=== PATIENT | male | born 1940 | race Caucasian/White ===

== ENCOUNTER 2021-12-31 00:48 | Inpatient (IN) | payer OTHER, BC ==
[~2021-12-31] VITALS: Ht 182.9 cm; Wt 82.5 kg
[2021-12-31 04:56] LABS: Urine Bacteria FEW /hpf (None Seen); Urine Blood 1+ /uL (Negative); Urine Specific Gravity 1.015 (1.001-1.035); Urine WBC 3554 /hpf (0 - 3); Urine WBC Clumps PRESENT /hpf (None Seen)
[2021-12-31] MEDS ORDERED: SODIUM CHLORIDE 0.9% 1,000 ML IV ONE (07:30)
[2021-12-31] MEDS ORDERED: ASPirin 81 mg TAB PO ONE (07:30)
[2021-12-31] MEDS ORDERED: SODIUM CHLORIDE 0.9% 1,000 ML IVB ONE (07:30)
[2021-12-31 09:02] LABS: Basophils # (auto) 0.1 10 ^3/uL (0-0.2); Eosinophils # (auto) 0.7 10 ^3/uL (0-0.8); Neutrophils # (auto) 8.4 10 ^3/uL (1.6-8.6); Red Blood Cells 4.08 10^6/uL (4.5-5.90)
[2021-12-31 09:04] LABS: Basophils % (auto) 1.2 % (0.0-2.0); Eosinophils % (auto) 6.3 % (0.0-7.0); Hematocrit 32.7 % (41.0-53.0); Hemoglobin 10.8 g/dL (13.5-17.5); Lymphocytes # (auto) 0.8 10 ^3/uL (0.4-5.4); Lymphocytes % (auto) 6.8 % (10.0-50.0); Mean Corpuscular Hemoglobin 26.4 pg (28.0-32.0); Mean Corpuscular Volume 80.2 fL (80.0-100.0); Monocytes # (auto) 1.2 10 ^3/uL (0-1.3); Monocytes % (auto) 10.8 % (0.0-12.0); Neutrophils % (auto) 74.9 % (37.0-80.0); Red Cell Distribution Width 17.9 % (11.8-14.3); White Blood Cell 11.2 10^3/uL (4.4-10.8)
[2021-12-31 09:06] LABS: Albumin 2.7 g/dL (3.4-5.0); Calcium 11.3 mg/dL (8.5-10.1); Potassium 4.9 mmol/L (3.5-5.1)
[2021-12-31 09:10] LABS: BUN/Creatinine Ratio 14.1; Bilirubin, Total 0.4 mg/dL (0.2-1.0); Total Protein 6.1 g/dL (6.4-8.2)
[2021-12-31] MEDS ORDERED: FUROSEMIDE 20 MG/2 ML VIAL IV ONE (13:15)
[2021-12-31] MEDS ORDERED: cefTRIAXone 1GM/50ML D5W 50 ML IV ONE (13:15)
[2021-12-31] MEDS ORDERED: AZITHROMYCIN 500MG/ 250ML 250 ML IV ONE (16:00)
[2021-12-31] MEDS ORDERED: NITROGLYCERIN 0.4 MG SL TAB SL PRN (16:30)
[2021-12-31] MEDS ORDERED: MORPHINE SULFATE INJECTION 2 MG/ML SYRG IV PRN ×2 (16:30→17:45)
[2021-12-31] MEDS ORDERED: METOPROLOL SUCCINATE XL 50 MG TAB PO ONE (17:30)
[2021-12-31] MEDS ORDERED: DOCUSATE SOD 100 MG CAP PO PRN (17:45)
[2021-12-31] MEDS ORDERED: LORazepam 0.5 MG TAB PO PRN (17:45)
[2021-12-31] MEDS ORDERED: hydrALAZINE HCL 20 MG/ML VL IV PRN (17:45)
[2021-12-31] MEDS ORDERED: dilTIAZem 125mg/125ml BAG KIT 125 ML IV SCH (17:45)
[2021-12-31] MEDS ORDERED: ONDANSETRON HCL 4 MG/2 ML VIAL IV PRN (17:45)
[2021-12-31] MEDS ORDERED: HYDROcodone-ACET 5/325MG TAB PO PRN (17:45)
[2021-12-31] MEDS: TAMSULOSIN HYDROCHLORIDE 0.4 MG CAP PO SCH (18:39)
[2021-12-31 18:45] LABS: Magnesium 1.8 mg/dL (1.6-2.6); Phosphorus 4.2 mg/dL (2.5-4.90)
[2021-12-31 18:54] LABS: INR 3.26 (0.9-1.15); Partial Thromboplastin Time 36.3 sec (23.6-33.0)
[2021-12-31 20:54] VITALS: BP 141/74
[2021-12-31 22:06] VITALS: BP 151/67
[2021-12-31] MEDS: ATORVASTATIN 20 MG TAB PO SCH (22:48)
[2021-12-31 23:50] VITALS: BP 126/53
[2022-01-01] VITALS (7 sets, daily range): BP systolic 128–168; BP diastolic 54–71
[2022-01-01] MEDS ORDERED: LABETALOL HCL 5 MG/ML 4ML SYRINGE IV PRN ×2 (01:00→09:30)
[2022-01-01] MEDS ORDERED: DEXTROSE (50%) 50ML SYRG IV PRN (01:00)
[2022-01-01] MEDS ORDERED: DexAMETHasone SOD PHOS 4 MG/1ML SDV INJ IV ONE (01:00)
[2022-01-01] MEDS ORDERED: LACTATED RINGER'S 1,000 ML IV SCH (01:00)
[2022-01-01] MEDS: IPRATROPIUM BROM 0.5 MG/2.5ML INH SOL NEB SCH ×2 (02:00→06:29)
[2022-01-01] MEDS ORDERED: LOSA25TA38 PO (05:01)
[2022-01-01] MEDS ORDERED: FAMO-12 PO (05:01)
[2022-01-01] MEDS ORDERED: FINA5TAB4 PO (05:01)
[2022-01-01] MEDS ORDERED: WARF6TAB21 PO (05:01)
[2022-01-01] MEDS ORDERED: TAMS0.4C36 PO (05:01)
[2022-01-01] MEDS ORDERED: METF-370 PO (05:01)
[2022-01-01] MEDS ORDERED: SIMV-8 PO (05:01)
[2022-01-01] MEDS ORDERED: CLINDAMYCIN 600MG IV 50 ML IV SCH (06:00)
[2022-01-01] MEDS: ACCU-CHEK COMFORT CURVE STRIP VI SCH ×4 (06:51→22:26)
[2022-01-01] MEDS: InsuLIN REG 1unit/0.01ml Soln (100units/ml) SC SCH ×4 (06:52→22:27)
[2022-01-01] MEDS: cefTRIAXone 1GM/50ML D5W 50 ML IV SCH (09:34)
[2022-01-01] MEDS: FINASTERIDE 5 MG TAB PO SCH (09:35)
[2022-01-01] MEDS ORDERED: dilTIAZem 120MG ER CAP PO SCH (10:00)
[2022-01-01] MEDS: AMIODARONE HCL 200 MG TAB PO SCH ×2 (10:13→22:25)
[2022-01-01] MEDS: CARVEDILOL 3.125 MG TAB PO SCH ×2 (10:13→22:26)
[2022-01-01] MEDS: amLODIPine BESYLATE 5 MG TAB PO SCH (10:14)
[2022-01-01 11:12] LABS: Hematocrit 28.8 % (41.0-53.0); Hemoglobin 9.3 g/dL (13.5-17.5); Red Blood Cells 3.54 10^6/uL (4.5-5.90)
[2022-01-01 11:14] LABS: Mean Corpuscular Hemoglobin 26.3 pg (28.0-32.0); Mean Corpuscular Hgb Conc. 32.3 g/dL (32.0-36.0); Mean Corpuscular Volume 81.4 fL (80.0-100.0); Red Cell Distribution Width 17.8 % (11.8-14.3); White Blood Cell 11.5 10^3/uL (4.4-10.8)
[2022-01-01 11:21] LABS: Basophils % (manual) 0 (0.0-2.0); Blast Cells 0; Myelocytes % 0; Promyelocytes % 0; Reactive Lymphocytes 0
[2022-01-01 11:30] LABS: INR 3.96 (0.9-1.15)
[2022-01-01 11:34] LABS: Albumin 2.2 g/dL (3.4-5.0); Calcium 10.5 mg/dL (8.5-10.1); Magnesium 1.6 mg/dL (1.6-2.6); Potassium 4.9 mmol/L (3.5-5.1)
[2022-01-01 11:48] LABS: BUN/Creatinine Ratio 15.1; Bilirubin, Total 0.3 mg/dL (0.2-1.0); CRP High Sensitivity 3.99 mg/dL (< 0.3); Phosphorus 3.7 mg/dL (2.5-4.90); Total Protein 5.5 g/dL (6.4-8.2)
[2022-01-01 11:49] LABS: Thyroid Stimulating Hormone 1.11 uIU/mL (0.358-3.74)
[2022-01-01] MEDS ORDERED: NYSTATIN TOPICAL CREAM 15GM TOP ONE (12:00)
[2022-01-01 12:24] LABS: Band Neutrophils % (manual) 45; Eosinophils % (manual) 4 (0-7); Lymphocytes % (manual) 1 (10.0-50.0); Metamyelocytes % 2; Monocytes % (manual) 3 (0-12)
[2022-01-01] MEDS: TAMSULOSIN HYDROCHLORIDE 0.4 MG CAP PO SCH (17:02)
[2022-01-01] MEDS: NYSTATIN TOPICAL CREAM 15GM TOP SCH (22:26)
[2022-01-01] MEDS: ATORVASTATIN 20 MG TAB PO SCH (22:26)
[2022-01-02 05:27] VITALS: BP 155/68
[2022-01-02] MEDS: ACCU-CHEK COMFORT CURVE STRIP VI SCH ×4 (06:12→21:55)
[2022-01-02] MEDS: InsuLIN REG 1unit/0.01ml Soln (100units/ml) SC SCH ×4 (06:12→22:01)
[2022-01-02 06:16] LABS: Basophils # (auto) 0.1 10 ^3/uL (0-0.2); Eosinophils # (auto) 1.2 10 ^3/uL (0-0.8); Hemoglobin 9.6 g/dL (13.5-17.5); Red Cell Distribution Width 17.4 % (11.8-14.3)
[2022-01-02 06:18] LABS: Basophils % (auto) 0.7 % (0.0-2.0); Eosinophils % (auto) 9.1 % (0.0-7.0); Hematocrit 28.6 % (41.0-53.0); Lymphocytes # (auto) 0.5 10 ^3/uL (0.4-5.4); Lymphocytes % (auto) 3.8 % (10.0-50.0); Mean Corpuscular Hemoglobin 26.6 pg (28.0-32.0); Mean Corpuscular Hgb Conc. 33.4 g/dL (32.0-36.0); Mean Corpuscular Volume 79.4 fL (80.0-100.0); Monocytes # (auto) 1.2 10 ^3/uL (0-1.3); Monocytes % (auto) 8.6 % (0.0-12.0); Neutrophils # (auto) 10.5 10 ^3/uL (1.6-8.6); Neutrophils % (auto) 77.8 % (37.0-80.0); Red Blood Cells 3.61 10^6/uL (4.5-5.90); White Blood Cell 13.5 10^3/uL (4.4-10.8)
[2022-01-02 06:22] LABS: INR 3.78 (0.9-1.15); Partial Thromboplastin Time 36.5 sec (23.6-33.0)
[2022-01-02 06:33] LABS: BUN/Creatinine Ratio 17.1; Calcium 10.8 mg/dL (8.5-10.1); Potassium 4.3 mmol/L (3.5-5.1)
[2022-01-02] MEDS: AMIODARONE HCL 200 MG TAB PO SCH ×2 (08:59→21:54)
[2022-01-02] MEDS: FINASTERIDE 5 MG TAB PO SCH (08:59)
[2022-01-02 09:00] VITALS: BP 129/53
[2022-01-02] MEDS: CARVEDILOL 3.125 MG TAB PO SCH ×2 (09:01→21:55)
[2022-01-02] MEDS: cefTRIAXone 1GM/50ML D5W 50 ML IV SCH (09:02)
[2022-01-02] MEDS: amLODIPine BESYLATE 5 MG TAB PO SCH (09:02)
[2022-01-02] MEDS ORDERED: ERTAPENEM SOD INJ 1 GM in SODIUM CHL 0.9% 50 ML IV ONE (10:15)
[2022-01-02] MEDS ORDERED: FUROSEMIDE 20 MG/2 ML VIAL IV ONE (10:15)
[2022-01-02 10:43] LABS: Urine Bacteria MANY /hpf (None Seen); Urine Blood TRACE /uL (Negative); Urine Budding Yeast FEW /hpf (None Seen); Urine Mucus FEW (None Seen); Urine WBC 743 /hpf (0 - 3); Urine WBC Clumps PRESENT /hpf (None Seen)
[2022-01-02 10:47] LABS: Amphetamine Screen, Urine NEGATIVE (NEGATIVE); Barbiturate Scree,Urine NEGATIVE (NEGATIVE); Benzodiazephine Screen, Urine NEGATIVE (NEGATIVE); Cannabinoid Screen, Urine NEGATIVE (NEGATIVE); Protein, Urine 37.8 mg/dL (0.0-11.9)
[2022-01-02] MEDS: NYSTATIN TOPICAL CREAM 15GM TOP SCH ×2 (10:49→21:55)
[2022-01-02 10:50] LABS: Cocaine Screen, Urine NEGATIVE (NEGATIVE); Opiate Scree,Urine NEGATIVE (NEGATIVE); Phencyclidine Screen, Urine NEGATIVE (NEGATIVE)
[2022-01-02 13:00] VITALS: BP 139/58
[2022-01-02 17:18] VITALS: BP 150/58
[2022-01-02] MEDS: TAMSULOSIN HYDROCHLORIDE 0.4 MG CAP PO SCH (18:22)
[2022-01-02] MEDS: ATORVASTATIN 20 MG TAB PO SCH (21:55)
[2022-01-02 23:03] VITALS: BP 128/55
[2022-01-03 05:29] VITALS: BP 146/62
[2022-01-03 06:06] LABS: Basophils # (auto) 0.1 10 ^3/uL (0-0.2); Lymphocytes # (auto) 0.6 10 ^3/uL (0.4-5.4); Monocytes # (auto) 0.9 10 ^3/uL (0-1.3); Monocytes % (auto) 8.3 % (0.0-12.0)
[2022-01-03 06:09] LABS: Eosinophils # (auto) 1.1 10 ^3/uL (0-0.8); Eosinophils % (auto) 10.8 % (0.0-7.0); Hematocrit 29.5 % (41.0-53.0); Hemoglobin 9.9 g/dL (13.5-17.5); Lymphocytes % (auto) 6.2 % (10.0-50.0); Mean Corpuscular Hemoglobin 27.2 pg (28.0-32.0); Mean Corpuscular Hgb Conc. 33.7 g/dL (32.0-36.0); Mean Corpuscular Volume 80.7 fL (80.0-100.0); Neutrophils # (auto) 7.6 10 ^3/uL (1.6-8.6); Neutrophils % (auto) 73.7 % (37.0-80.0); Red Blood Cells 3.65 10^6/uL (4.5-5.90); Red Cell Distribution Width 17.4 % (11.8-14.3); White Blood Cell 10.3 10^3/uL (4.4-10.8)
[2022-01-03 06:19] LABS: INR 2.12 (0.9-1.15); Partial Thromboplastin Time 30.6 sec (23.6-33.0)
[2022-01-03 06:21] LABS: BUN/Creatinine Ratio 18.5; Calcium 11.2 mg/dL (8.5-10.1); Potassium 4.8 mmol/L (3.5-5.1)
[2022-01-03] MEDS: ACCU-CHEK COMFORT CURVE STRIP VI SCH ×4 (06:43→22:10)
[2022-01-03] MEDS: InsuLIN REG 1unit/0.01ml Soln (100units/ml) SC SCH ×4 (06:44→22:24)
[2022-01-03 09:00] VITALS: BP 132/54
[2022-01-03] MEDS: amLODIPine BESYLATE 5 MG TAB PO SCH (10:42)
[2022-01-03] MEDS: NYSTATIN TOPICAL CREAM 15GM TOP SCH ×2 (10:42→22:03)
[2022-01-03] MEDS: FINASTERIDE 5 MG TAB PO SCH (10:42)
[2022-01-03] MEDS: CARVEDILOL 3.125 MG TAB PO SCH ×2 (10:43→22:00)
[2022-01-03] MEDS: AMIODARONE HCL 200 MG TAB PO SCH ×2 (10:43→21:58)
[2022-01-03] MEDS: ERTAPENEM SOD INJ 1 GM in SODIUM CHL 0.9% 50 ML IV SCH (11:18)
[2022-01-03 13:00] VITALS: BP 147/61
[2022-01-03 17:00] VITALS: BP 160/62
[2022-01-03] MEDS ORDERED: WARFARIN SODIUM 1 MG TAB PO ONE (17:00)
[2022-01-03] MEDS: TAMSULOSIN HYDROCHLORIDE 0.4 MG CAP PO SCH (18:16)
[2022-01-03] MEDS: ATORVASTATIN 20 MG TAB PO SCH (22:00)
[2022-01-04 05:00] VITALS: BP 127/62
[2022-01-04 05:13] LABS: Basophils # (auto) 0.1 10 ^3/uL (0-0.2); Hemoglobin 9.7 g/dL (13.5-17.5); Lymphocytes # (auto) 0.6 10 ^3/uL (0.4-5.4); Mean Corpuscular Hemoglobin 26.9 pg (28.0-32.0); White Blood Cell 12.4 10^3/uL (4.4-10.8)
[2022-01-04 05:15] LABS: Basophils % (auto) 1.1 % (0.0-2.0); Eosinophils % (auto) 8.3 % (0.0-7.0); Hematocrit 28.9 % (41.0-53.0); Lymphocytes % (auto) 4.6 % (10.0-50.0); Mean Corpuscular Hgb Conc. 33.4 g/dL (32.0-36.0); Mean Corpuscular Volume 80.6 fL (80.0-100.0); Monocytes % (auto) 7.7 % (0.0-12.0); Neutrophils # (auto) 9.7 10 ^3/uL (1.6-8.6); Neutrophils % (auto) 78.3 % (37.0-80.0); Red Blood Cells 3.59 10^6/uL (4.5-5.90); Red Cell Distribution Width 16.8 % (11.8-14.3)
[2022-01-04 05:25] LABS: INR 1.66 (0.9-1.15); Partial Thromboplastin Time 25.3 sec (23.6-33.0)
[2022-01-04 05:37] LABS: Potassium 5.2 mmol/L (3.5-5.1)
[2022-01-04 05:42] LABS: BUN/Creatinine Ratio 18.6; Calcium 11.2 mg/dL (8.5-10.1)
[2022-01-04] MEDS: ACCU-CHEK COMFORT CURVE STRIP VI SCH ×4 (06:11→22:27)
[2022-01-04] MEDS: InsuLIN REG 1unit/0.01ml Soln (100units/ml) SC SCH ×4 (06:11→22:00)
[2022-01-04 08:00] VITALS: BP 163/69
[2022-01-04 08:47] VITALS: BP 163/69
[2022-01-04] MEDS ORDERED: HEPARIN SODIUM (PORCINE) 5000 UNITS/ML 1ML VIAL IV ONE (09:30)
[2022-01-04] MEDS: ERTAPENEM SOD INJ 1 GM in SODIUM CHL 0.9% 50 ML IV SCH (09:37)
[2022-01-04] MEDS: AMIODARONE HCL 200 MG TAB PO SCH ×2 (09:40→22:26)
[2022-01-04] MEDS: CARVEDILOL 3.125 MG TAB PO SCH ×2 (09:40→22:26)
[2022-01-04] MEDS: FINASTERIDE 5 MG TAB PO SCH (09:41)
[2022-01-04] MEDS: amLODIPine BESYLATE 5 MG TAB PO SCH (09:41)
[2022-01-04] MEDS: NYSTATIN TOPICAL CREAM 15GM TOP SCH ×2 (09:41→22:27)
[2022-01-04 10:01] LABS: Hemoglobin 10.2 g/dL (13.5-17.5); Mean Corpuscular Hgb Conc. 33.1 g/dL (32.0-36.0); Red Cell Distribution Width 16.9 % (11.8-14.3)
[2022-01-04 10:02] LABS: Mean Corpuscular Hemoglobin 26.8 pg (28.0-32.0); Red Blood Cells 3.82 10^6/uL (4.5-5.90); White Blood Cell 12.8 10^3/uL (4.4-10.8)
[2022-01-04 10:11] LABS: Basophils % (manual) 0 (0.0-2.0); Blast Cells 0; Myelocytes % 0; Promyelocytes % 0; Reactive Lymphocytes 0
[2022-01-04 10:12] LABS: INR 1.67 (0.9-1.15); Partial Thromboplastin Time 27.7 sec (23.6-33.0)
[2022-01-04 10:40] LABS: Band Neutrophils % (manual) 18; Eosinophils % (manual) 6 (0-7); Lymphocytes % (manual) 6 (10.0-50.0); Metamyelocytes % 3; Monocytes % (manual) 7 (0-12)
[2022-01-04] MEDS: HEPARIN DRIP/D5W 100UNITS/ML 250 ML IV SCH (11:30)
[2022-01-04] MEDS: SODIUM ZIRCONIUM CYCL 10 GM PAK PO SCH ×2 (12:17→22:27)
[2022-01-04 12:40] VITALS: BP 127/76
[2022-01-04 17:00] VITALS: BP 137/57
[2022-01-04] MEDS: TAMSULOSIN HYDROCHLORIDE 0.4 MG CAP PO SCH (18:07)
[2022-01-04 18:17] LABS: INR 2.05 (0.9-1.15); Partial Thromboplastin Time 41.3 sec (23.6-33.0)
[2022-01-04 22:00] VITALS: BP 145/81
[2022-01-04] MEDS: ATORVASTATIN 20 MG TAB PO SCH (22:26)
[2022-01-05 02:21] LABS: INR 1.86 (0.9-1.15)
[2022-01-05 02:33] LABS: Partial Thromboplastin Time 72.9 sec (23.6-33.0)
[2022-01-05] MEDS: HEPARIN DRIP/D5W 100UNITS/ML 250 ML IV SCH ×2 (03:06→22:25)
[2022-01-05 05:00] VITALS: BP 118/43
[2022-01-05 05:19] LABS: Basophils # (auto) 0.1 10 ^3/uL (0-0.2); Eosinophils % (auto) 8.4 % (0.0-7.0); Hemoglobin 9.7 g/dL (13.5-17.5); Lymphocytes # (auto) 0.8 10 ^3/uL (0.4-5.4); Lymphocytes % (auto) 6.2 % (10.0-50.0); Mean Corpuscular Hgb Conc. 33.5 g/dL (32.0-36.0); Mean Corpuscular Volume 80.4 fL (80.0-100.0); Monocytes # (auto) 0.8 10 ^3/uL (0-1.3); Monocytes % (auto) 6.6 % (0.0-12.0); Neutrophils # (auto) 9.7 10 ^3/uL (1.6-8.6); Neutrophils % (auto) 77.8 % (37.0-80.0); Nucleated Red Blood Cells % 0.1 %; Red Cell Distribution Width 17.1 % (11.8-14.3); White Blood Cell 12.4 10^3/uL (4.4-10.8)
[2022-01-05 05:37] LABS: BUN/Creatinine Ratio 17.4; Calcium 10.6 mg/dL (8.5-10.1); Potassium 4.2 mmol/L (3.5-5.1)
[2022-01-05] MEDS: SODIUM ZIRCONIUM CYCL 10 GM PAK PO SCH (06:00)
[2022-01-05] MEDS: ACCU-CHEK COMFORT CURVE STRIP VI SCH ×4 (06:55→22:16)
[2022-01-05] MEDS: InsuLIN REG 1unit/0.01ml Soln (100units/ml) SC SCH ×4 (06:55→22:00)
[2022-01-05 08:00] VITALS: BP 148/54
[2022-01-05 08:56] VITALS: BP 148/54
[2022-01-05] MEDS: NYSTATIN TOPICAL CREAM 15GM TOP SCH ×2 (10:00→22:17)
[2022-01-05 10:51] LABS: INR 1.71 (0.9-1.15)
[2022-01-05 11:01] LABS: Partial Thromboplastin Time 98.5 sec (23.6-33.0)
[2022-01-05] MEDS ORDERED: LIDOCAINE 2%HCL (LOCAL ANESTH.) INJ 10ml MDV ONE (11:21)
[2022-01-05] MEDS ORDERED: diphenhdrAMINE HCL 50 MG/1 ML VL ONE (11:22)
[2022-01-05] MEDS ORDERED: ceFAZolin 1GM/50ML 100 ML IV ONE (12:17)
[2022-01-05] MEDS ORDERED: BUPIVACAINE 0.25% INJ 50ML VIAL ONE (12:22)
[2022-01-05] MEDS ORDERED: LIDOCAINE W/ EPINEPHRINE 1% 20ML VIAL ONE (12:22)
[2022-01-05] MEDS ORDERED: MIDAZOLAM HCL 2MG/2ML 2ml VIAL (1mg/ml) ONE (12:46)
[2022-01-05] MEDS ORDERED: fentaNYL CITRATE 100 MCG/2 ML VL ONE (12:46)
[2022-01-05] MEDS ORDERED: POVIDONE IODINE 10 % TOPICAL OINT 30GM TOP ONE (13:13)
[2022-01-05] MEDS ORDERED: LIDOCAINE 2% (LOCAL ANESTH.) PF 5ml SDV ONE (13:23)
[2022-01-05] MEDS ORDERED: PROPOFOL 10 MG/ML 20 ML IV ONE (13:23)
[2022-01-05] MEDS ORDERED: ONDANSETRON HCL 4 MG/2 ML VIAL IV PRN (13:45)
[2022-01-05] MEDS: ERTAPENEM SOD INJ 1 GM in SODIUM CHL 0.9% 50 ML IV SCH (14:36)
[2022-01-05] MEDS: amLODIPine BESYLATE 5 MG TAB PO SCH (14:37)
[2022-01-05] MEDS: AMIODARONE HCL 200 MG TAB PO SCH ×2 (14:38→22:11)
[2022-01-05] MEDS: CARVEDILOL 3.125 MG TAB PO SCH ×2 (14:38→22:16)
[2022-01-05] MEDS: FINASTERIDE 5 MG TAB PO SCH (14:38)
[2022-01-05 16:42] LABS: INR 1.72 (0.9-1.15); Partial Thromboplastin Time 49.5 sec (23.6-33.0)
[2022-01-05 16:58] VITALS: BP 139/50
[2022-01-05 16:59] VITALS: BP 139/65
[2022-01-05] MEDS: TAMSULOSIN HYDROCHLORIDE 0.4 MG CAP PO SCH (17:49)
[2022-01-05 22:03] VITALS: BP 125/49
[2022-01-05] MEDS: ATORVASTATIN 20 MG TAB PO SCH (22:11)
[2022-01-05 23:53] LABS: INR 1.75 (0.9-1.15)
[2022-01-05 23:59] LABS: Partial Thromboplastin Time 73.4 sec (23.6-33.0)
[2022-01-06 05:04] VITALS: BP 121/46
[2022-01-06 05:27] LABS: Basophils # (auto) 0.1 10 ^3/uL (0-0.2); Basophils % (auto) 1.1 % (0.0-2.0); Eosinophils # (auto) 0.7 10 ^3/uL (0-0.8); Eosinophils % (auto) 6.1 % (0.0-7.0); Hematocrit 27.5 % (41.0-53.0); Hemoglobin 9.3 g/dL (13.5-17.5); Lymphocytes % (auto) 8.8 % (10.0-50.0); Mean Corpuscular Hemoglobin 27.2 pg (28.0-32.0); Mean Corpuscular Hgb Conc. 33.7 g/dL (32.0-36.0); Mean Corpuscular Volume 80.8 fL (80.0-100.0); Monocytes # (auto) 0.7 10 ^3/uL (0-1.3); Monocytes % (auto) 6.2 % (0.0-12.0); Neutrophils # (auto) 8.8 10 ^3/uL (1.6-8.6); Neutrophils % (auto) 77.8 % (37.0-80.0); White Blood Cell 11.4 10^3/uL (4.4-10.8)
[2022-01-06 05:38] LABS: INR 1.63 (0.9-1.15); Partial Thromboplastin Time 34.7 sec (23.6-33.0)
[2022-01-06 05:42] LABS: Calcium 10.7 mg/dL (8.5-10.1); Potassium 4.2 mmol/L (3.5-5.1)
[2022-01-06 05:44] LABS: BUN/Creatinine Ratio 16.8
[2022-01-06] MEDS: InsuLIN REG 1unit/0.01ml Soln (100units/ml) SC SCH ×3 (07:00→16:57)
[2022-01-06] MEDS: ACCU-CHEK COMFORT CURVE STRIP VI SCH ×3 (07:10→16:56)
[2022-01-06] MEDS ORDERED: HEPARIN SODIUM (PORCINE) 5000 UNITS/ML 1ML VIAL IV ONE ×2 (07:30→18:30)
[2022-01-06 09:19] VITALS: BP 139/43
[2022-01-06] MEDS: AMIODARONE HCL 200 MG TAB PO SCH ×2 (09:55→21:19)
[2022-01-06] MEDS: amLODIPine BESYLATE 5 MG TAB PO SCH (09:56)
[2022-01-06] MEDS: CARVEDILOL 3.125 MG TAB PO SCH ×2 (09:56→21:19)
[2022-01-06] MEDS: FINASTERIDE 5 MG TAB PO SCH (09:56)
[2022-01-06] MEDS: NYSTATIN TOPICAL CREAM 15GM TOP SCH ×2 (09:57→21:20)
[2022-01-06 11:59] LABS: INR 1.67 (0.9-1.15)
[2022-01-06 12:28] LABS: Partial Thromboplastin Time > 139.0 sec (23.6-33.0)
[2022-01-06] MEDS: ERTAPENEM SOD INJ 1 GM in SODIUM CHL 0.9% 50 ML IV SCH (12:32)
[2022-01-06 13:09] VITALS: BP 109/97
[2022-01-06] MEDS: HEPARIN DRIP/D5W 100UNITS/ML 250 ML IV SCH ×3 (13:15→23:35)
[2022-01-06 16:26] VITALS: BP 123/52
[2022-01-06 17:50] LABS: INR 1.41 (0.9-1.15); Partial Thromboplastin Time 27.9 sec (23.6-33.0)
[2022-01-06] MEDS ORDERED: levoFLOXacin 500MG 100 ML IV ONE (18:15)
[2022-01-06] MEDS ORDERED: LACTULOSE 20Gm/30ML SOLN PO ONE (18:30)
[2022-01-06] MEDS: TAMSULOSIN HYDROCHLORIDE 0.4 MG CAP PO SCH (18:39)
[2022-01-06] MEDS ORDERED: WARFARIN SODIUM 1 MG TAB PO ONE (19:45)
[2022-01-06] MEDS: ATORVASTATIN 20 MG TAB PO SCH (21:19)
[2022-01-06 22:05] VITALS: BP 144/45
[2022-01-06] MEDS: LACTULOSE 20Gm/30ML SOLN PO SCH (23:31)
[2022-01-07 01:18] LABS: INR 1.55 (0.9-1.15)
[2022-01-07 01:20] LABS: Partial Thromboplastin Time 116.3 sec (23.6-33.0)
[2022-01-07] MEDS: HEPARIN DRIP/D5W 100UNITS/ML 250 ML IV SCH ×3 (02:32→19:26)
[2022-01-07 05:05] VITALS: BP 131/52
[2022-01-07] MEDS: LACTULOSE 20Gm/30ML SOLN PO SCH ×3 (05:31→17:51)
[2022-01-07 07:28] LABS: INR 1.51 (0.9-1.15)
[2022-01-07 09:26] VITALS: BP 134/52
[2022-01-07] MEDS: amLODIPine BESYLATE 5 MG TAB PO SCH (09:51)
[2022-01-07] MEDS: FINASTERIDE 5 MG TAB PO SCH (09:51)
[2022-01-07] MEDS: AMIODARONE HCL 200 MG TAB PO SCH ×2 (09:51→21:39)
[2022-01-07] MEDS: NYSTATIN TOPICAL CREAM 15GM TOP SCH ×2 (09:52→21:41)
[2022-01-07] MEDS: CARVEDILOL 3.125 MG TAB PO SCH ×2 (09:52→21:39)
[2022-01-07] MEDS ORDERED: levoFLOXacin 500MG 100 ML IV SCH (10:00)
[2022-01-07 12:52] VITALS: BP 131/52
[2022-01-07 14:38] LABS: INR 1.49 (0.9-1.15); Partial Thromboplastin Time 59.9 sec (23.6-33.0)
[2022-01-07 16:43] VITALS: BP 130/54
[2022-01-07] MEDS: levoFLOXacin 250MG 50 ML IV SCH (17:51)
[2022-01-07] MEDS: TAMSULOSIN HYDROCHLORIDE 0.4 MG CAP PO SCH (17:51)
[2022-01-07] MEDS ORDERED: WARFARIN SODIUM 1 MG TAB PO ONE (18:00)
[2022-01-07 21:23] LABS: Basophils # (auto) 0.1 10 ^3/uL (0-0.2); Basophils % (auto) 0.7 % (0.0-2.0); Lymphocytes # (auto) 0.7 10 ^3/uL (0.4-5.4)
[2022-01-07 21:24] LABS: Hemoglobin 9.3 g/dL (13.5-17.5)
[2022-01-07 21:27] LABS: Eosinophils # (auto) 1.2 10 ^3/uL (0-0.8); Eosinophils % (auto) 8.6 % (0.0-7.0); Hematocrit 27.4 % (41.0-53.0); Lymphocytes % (auto) 5.1 % (10.0-50.0); Mean Corpuscular Hemoglobin 27.4 pg (28.0-32.0); Mean Corpuscular Volume 80.6 fL (80.0-100.0); Monocytes # (auto) 1.3 10 ^3/uL (0-1.3); Neutrophils # (auto) 10.7 10 ^3/uL (1.6-8.6); Neutrophils % (auto) 76.6 % (37.0-80.0); Nucleated Red Blood Cells % 0.1 %; Red Cell Distribution Width 16.9 % (11.8-14.3)
[2022-01-07] MEDS: ATORVASTATIN 20 MG TAB PO SCH (21:39)
[2022-01-07 22:00] VITALS: BP 134/56
[2022-01-07 22:53] LABS: INR 1.49 (0.9-1.15); Partial Thromboplastin Time 61.5 sec (23.6-33.0)
[2022-01-08 05:00] VITALS: BP 130/48
[2022-01-08] MEDS: LACTULOSE 20Gm/30ML SOLN PO SCH ×4 (05:27→17:54)
[2022-01-08 06:27] LABS: INR 1.45 (0.9-1.15); Partial Thromboplastin Time 44.5 sec (23.6-33.0)
[2022-01-08 08:00] VITALS: BP 137/49
[2022-01-08 09:00] VITALS: BP 137/49
[2022-01-08] MEDS: ACETAMINOPHEN 325 MG TAB PO PRN (11:29)
[2022-01-08] MEDS: amLODIPine BESYLATE 5 MG TAB PO SCH (11:30)
[2022-01-08] MEDS: FINASTERIDE 5 MG TAB PO SCH (11:30)
[2022-01-08] MEDS: CARVEDILOL 3.125 MG TAB PO SCH ×2 (11:31→21:45)
[2022-01-08] MEDS: AMIODARONE HCL 200 MG TAB PO SCH ×2 (11:31→21:44)
[2022-01-08] MEDS: NYSTATIN TOPICAL CREAM 15GM TOP SCH ×2 (11:36→21:45)
[2022-01-08 12:20] LABS: Basophils # (auto) 0.1 10 ^3/uL (0-0.2); Lymphocytes # (auto) 0.7 10 ^3/uL (0.4-5.4); Nucleated Red Blood Cells % 0.1 %
[2022-01-08 12:22] LABS: Basophils % (auto) 0.5 % (0.0-2.0); Eosinophils # (auto) 1.2 10 ^3/uL (0-0.8); Eosinophils % (auto) 7.4 % (0.0-7.0); Hematocrit 28.6 % (41.0-53.0); Hemoglobin 9.4 g/dL (13.5-17.5); INR 1.38 (0.9-1.15); Lymphocytes % (auto) 4.4 % (10.0-50.0); Mean Corpuscular Hemoglobin 26.6 pg (28.0-32.0); Mean Corpuscular Hgb Conc. 32.8 g/dL (32.0-36.0); Mean Corpuscular Volume 81.2 fL (80.0-100.0); Monocytes % (auto) 6.5 % (0.0-12.0); Neutrophils # (auto) 12.7 10 ^3/uL (1.6-8.6); Neutrophils % (auto) 81.2 % (37.0-80.0); Partial Thromboplastin Time 54.1 sec (23.6-33.0); Red Blood Cells 3.52 10^6/uL (4.5-5.90); Red Cell Distribution Width 16.9 % (11.8-14.3); White Blood Cell 15.7 10^3/uL (4.4-10.8)
[2022-01-08 13:00] VITALS: BP 147/50
[2022-01-08] MEDS: HEPARIN DRIP/D5W 100UNITS/ML 250 ML IV SCH (15:54)
[2022-01-08] MEDS ORDERED: WARFARIN SODIUM 2 MG TAB PO ONE (17:00)
[2022-01-08 17:16] VITALS: BP 133/49
[2022-01-08] MEDS: levoFLOXacin 250MG 50 ML IV SCH (17:53)
[2022-01-08] MEDS: TAMSULOSIN HYDROCHLORIDE 0.4 MG CAP PO SCH (17:55)
[2022-01-08 18:52] LABS: INR 1.44 (0.9-1.15); Partial Thromboplastin Time 60.5 sec (23.6-33.0)
[2022-01-08] MEDS: ATORVASTATIN 20 MG TAB PO SCH (21:44)
[2022-01-08 22:00] VITALS: BP 134/51
[2022-01-09 00:27] LABS: INR 1.45 (0.9-1.15)
[2022-01-09 00:30] LABS: Partial Thromboplastin Time 85.4 sec (23.6-33.0)
[2022-01-09] MEDS: LACTULOSE 20Gm/30ML SOLN PO SCH ×5 (00:30→23:39)
[2022-01-09 05:00] VITALS: BP 124/46
[2022-01-09 06:12] LABS: Basophils # (auto) 0.1 10 ^3/uL (0-0.2); Basophils % (auto) 0.6 % (0.0-2.0); Eosinophils # (auto) 1.2 10 ^3/uL (0-0.8); Eosinophils % (auto) 9.3 % (0.0-7.0); Hematocrit 27.8 % (41.0-53.0); Hemoglobin 8.9 g/dL (13.5-17.5); Lymphocytes # (auto) 0.7 10 ^3/uL (0.4-5.4); Lymphocytes % (auto) 5.4 % (10.0-50.0); Mean Corpuscular Hemoglobin 26.4 pg (28.0-32.0); Mean Corpuscular Hgb Conc. 32.1 g/dL (32.0-36.0); Mean Corpuscular Volume 82.3 fL (80.0-100.0); Monocytes # (auto) 1.1 10 ^3/uL (0-1.3); Monocytes % (auto) 8.4 % (0.0-12.0); Neutrophils # (auto) 10.2 10 ^3/uL (1.6-8.6); Neutrophils % (auto) 76.3 % (37.0-80.0); Red Blood Cells 3.38 10^6/uL (4.5-5.90); Red Cell Distribution Width 16.9 % (11.8-14.3); White Blood Cell 13.4 10^3/uL (4.4-10.8)
[2022-01-09 06:30] LABS: BUN/Creatinine Ratio 14.8; Calcium 11.3 mg/dL (8.5-10.1); Magnesium 2.2 mg/dL (1.6-2.6); Potassium 4.1 mmol/L (3.5-5.1); Uric Acid 5.7 mg/dL (3.5-7.2)
[2022-01-09 06:35] LABS: INR 1.52 (0.9-1.15)
[2022-01-09 07:46] LABS: Partial Thromboplastin Time 71.6 sec (23.6-33.0)
[2022-01-09 08:00] VITALS: BP 127/80
[2022-01-09 09:03] VITALS: BP 127/50
[2022-01-09] MEDS: AMIODARONE HCL 200 MG TAB PO SCH ×2 (10:41→21:53)
[2022-01-09] MEDS: amLODIPine BESYLATE 5 MG TAB PO SCH (10:42)
[2022-01-09] MEDS: CARVEDILOL 3.125 MG TAB PO SCH ×2 (10:42→21:53)
[2022-01-09] MEDS: FINASTERIDE 5 MG TAB PO SCH (10:43)
[2022-01-09] MEDS: NYSTATIN TOPICAL CREAM 15GM TOP SCH ×2 (10:43→21:54)
[2022-01-09] MEDS ORDERED: PANTOPRAZOLE 40 MG TAB PO ONE (11:30)
[2022-01-09] MEDS: HEPARIN DRIP/D5W 100UNITS/ML 250 ML IV SCH (12:19)
[2022-01-09 12:47] LABS: INR 1.56 (0.9-1.15); Partial Thromboplastin Time 47.8 sec (23.6-33.0)
[2022-01-09 17:00] VITALS: BP 131/49
[2022-01-09] MEDS ORDERED: WARFARIN SODIUM 2 MG TAB PO ONE (17:00)
[2022-01-09] MEDS: TAMSULOSIN HYDROCHLORIDE 0.4 MG CAP PO SCH (18:10)
[2022-01-09] MEDS: levoFLOXacin 250MG 50 ML IV SCH (18:10)
[2022-01-09 20:32] LABS: INR 1.82 (0.9-1.15)
[2022-01-09 20:40] LABS: Partial Thromboplastin Time 100.8 sec (23.6-33.0)
[2022-01-09] MEDS: ATORVASTATIN 20 MG TAB PO SCH (21:52)
[2022-01-09 22:00] VITALS: BP 113/41
[2022-01-10 05:00] VITALS: BP 127/56
[2022-01-10] MEDS: LACTULOSE 20Gm/30ML SOLN PO SCH ×4 (05:51→23:35)
[2022-01-10] MEDS: HEPARIN DRIP/D5W 100UNITS/ML 250 ML IV SCH (06:01)
[2022-01-10 06:32] LABS: Basophils # (auto) 0.1 10 ^3/uL (0-0.2); Basophils % (auto) 0.8 % (0.0-2.0); Eosinophils # (auto) 1.3 10 ^3/uL (0-0.8); Hematocrit 26.6 % (41.0-53.0); Hemoglobin 9.2 g/dL (13.5-17.5); Lymphocytes # (auto) 0.7 10 ^3/uL (0.4-5.4); Lymphocytes % (auto) 4.7 % (10.0-50.0); Mean Corpuscular Hemoglobin 27.7 pg (28.0-32.0); Mean Corpuscular Hgb Conc. 34.6 g/dL (32.0-36.0); Mean Corpuscular Volume 80.1 fL (80.0-100.0); Monocytes # (auto) 0.9 10 ^3/uL (0-1.3); Monocytes % (auto) 6.3 % (0.0-12.0); Neutrophils # (auto) 11.2 10 ^3/uL (1.6-8.6); Neutrophils % (auto) 79.2 % (37.0-80.0); Nucleated Red Blood Cells % 0.1 %; Red Blood Cells 3.32 10^6/uL (4.5-5.90); White Blood Cell 14.2 10^3/uL (4.4-10.8)
[2022-01-10 06:41] LABS: INR 2.39 (0.9-1.15)
[2022-01-10 06:55] LABS: BUN/Creatinine Ratio 14.1; Calcium 12.2 mg/dL (8.5-10.1); Potassium 4.6 mmol/L (3.5-5.1)
[2022-01-10 07:00] LABS: Partial Thromboplastin Time 74.8 sec (23.6-33.0)
[2022-01-10 08:00] VITALS: BP 127/80
[2022-01-10 09:00] VITALS: BP 133/53
[2022-01-10] MEDS: PANTOPRAZOLE 40 MG TAB PO SCH (09:32)
[2022-01-10] MEDS: amLODIPine BESYLATE 5 MG TAB PO SCH (09:33)
[2022-01-10] MEDS: FINASTERIDE 5 MG TAB PO SCH (09:33)
[2022-01-10] MEDS: AMIODARONE HCL 200 MG TAB PO SCH ×2 (09:34→22:04)
[2022-01-10] MEDS: CARVEDILOL 3.125 MG TAB PO SCH ×2 (09:34→22:05)
[2022-01-10] MEDS: NYSTATIN TOPICAL CREAM 15GM TOP SCH ×2 (09:35→21:32)
[2022-01-10] MEDS ORDERED: AMPICILLIN INJ 500 MG in SODIUM CHL 0.9% 50 ML IV ONE (09:45)
[2022-01-10] MEDS: SODIUM CHLORIDE 0.9% 1,000 ML IV SCH ×2 (11:00→12:00)
[2022-01-10 13:00] VITALS: BP 132/45
[2022-01-10 14:19] LABS: INR 2.85 (0.9-1.15)
[2022-01-10 14:25] LABS: Partial Thromboplastin Time 93.1 sec (23.6-33.0)
[2022-01-10] MEDS: AMPICILLIN INJ 500 MG in SODIUM CHL 0.9% 50 ML IV SCH ×2 (14:50→22:11)
[2022-01-10 17:00] VITALS: BP 136/56
[2022-01-10] MEDS ORDERED: WARFARIN SODIUM 2 MG TAB PO ONE (17:00)
[2022-01-10] MEDS: TAMSULOSIN HYDROCHLORIDE 0.4 MG CAP PO SCH (18:09)
[2022-01-10] MEDS: ATORVASTATIN 20 MG TAB PO SCH (21:32)
[2022-01-10 22:00] VITALS: BP 115/41
[2022-01-11 05:00] VITALS: BP 132/42
[2022-01-11] MEDS: LACTULOSE 20Gm/30ML SOLN PO SCH ×3 (05:40→17:48)
[2022-01-11] MEDS: AMPICILLIN INJ 500 MG in SODIUM CHL 0.9% 50 ML IV SCH ×3 (05:45→22:15)
[2022-01-11 06:17] LABS: INR 2.56 (0.9-1.15); Partial Thromboplastin Time 32.8 sec (23.6-33.0)
[2022-01-11 06:20] LABS: Basophils # (auto) 0.1 10 ^3/uL (0-0.2); Hematocrit 27.2 % (41.0-53.0); Lymphocytes # (auto) 0.7 10 ^3/uL (0.4-5.4); Mean Corpuscular Hemoglobin 26.8 pg (28.0-32.0); Mean Corpuscular Hgb Conc. 33.2 g/dL (32.0-36.0); Mean Corpuscular Volume 80.7 fL (80.0-100.0); Monocytes # (auto) 1.1 10 ^3/uL (0-1.3)
[2022-01-11 06:23] LABS: Potassium 4.3 mmol/L (3.5-5.1)
[2022-01-11 06:24] LABS: Basophils % (auto) 0.9 % (0.0-2.0); Eosinophils # (auto) 1.3 10 ^3/uL (0-0.8); Eosinophils % (auto) 8.6 % (0.0-7.0); Lymphocytes % (auto) 4.7 % (10.0-50.0); Monocytes % (auto) 7.4 % (0.0-12.0); Neutrophils # (auto) 11.7 10 ^3/uL (1.6-8.6); Neutrophils % (auto) 78.4 % (37.0-80.0); Red Blood Cells 3.37 10^6/uL (4.5-5.90); White Blood Cell 14.9 10^3/uL (4.4-10.8)
[2022-01-11 06:25] LABS: BUN/Creatinine Ratio 14.1; Calcium 11.7 mg/dL (8.5-10.1)
[2022-01-11 08:00] VITALS: BP 137/51
[2022-01-11 09:00] VITALS: BP 137/51
[2022-01-11] MEDS: AMIODARONE HCL 200 MG TAB PO SCH ×2 (09:54→22:15)
[2022-01-11] MEDS: CARVEDILOL 3.125 MG TAB PO SCH ×2 (09:55→22:15)
[2022-01-11] MEDS: FINASTERIDE 5 MG TAB PO SCH (09:56)
[2022-01-11] MEDS: amLODIPine BESYLATE 5 MG TAB PO SCH (09:56)
[2022-01-11] MEDS: PANTOPRAZOLE 40 MG TAB PO SCH (09:56)
[2022-01-11] MEDS: NYSTATIN TOPICAL CREAM 15GM TOP SCH ×2 (12:02→22:16)
[2022-01-11 13:00] VITALS: BP 131/46
[2022-01-11 17:00] VITALS: BP 104/48
[2022-01-11] MEDS ORDERED: WARFARIN SODIUM 2 MG TAB PO ONE (17:00)
[2022-01-11] MEDS: TAMSULOSIN HYDROCHLORIDE 0.4 MG CAP PO SCH (17:47)
[2022-01-11 22:00] VITALS: BP 129/50
[2022-01-11] MEDS: ATORVASTATIN 20 MG TAB PO SCH (22:16)
[2022-01-12] MEDS: LACTULOSE 20Gm/30ML SOLN PO SCH ×2 (00:06→05:56)
[2022-01-12 05:00] VITALS: BP 132/51
[2022-01-12] MEDS: AMPICILLIN INJ 500 MG in SODIUM CHL 0.9% 50 ML IV SCH (05:59)
[2022-01-12 06:21] LABS: Basophils # (auto) 0.2 10 ^3/uL (0-0.2); Lymphocytes # (auto) 0.7 10 ^3/uL (0.4-5.4); Monocytes # (auto) 1.2 10 ^3/uL (0-1.3); Monocytes % (auto) 6.5 % (0.0-12.0); White Blood Cell 17.9 10^3/uL (4.4-10.8)
[2022-01-12 06:24] LABS: Eosinophils # (auto) 1.6 10 ^3/uL (0-0.8); Eosinophils % (auto) 9.1 % (0.0-7.0); Hematocrit 28.8 % (41.0-53.0); Hemoglobin 9.7 g/dL (13.5-17.5); Lymphocytes % (auto) 3.7 % (10.0-50.0); Mean Corpuscular Hemoglobin 27.2 pg (28.0-32.0); Mean Corpuscular Hgb Conc. 33.6 g/dL (32.0-36.0); Neutrophils # (auto) 14.3 10 ^3/uL (1.6-8.6); Neutrophils % (auto) 79.7 % (37.0-80.0); Red Blood Cells 3.56 10^6/uL (4.5-5.90); Red Cell Distribution Width 17.3 % (11.8-14.3)
[2022-01-12 06:41] LABS: INR 2.85 (0.9-1.15); Partial Thromboplastin Time 35.5 sec (23.6-33.0)
[2022-01-12 07:30] VITALS: BP 156/63
[2022-01-12 08:10] VITALS: BP 156/63
[2022-01-12] MEDS ORDERED: levoFLOXacin 500MG 100 ML IV ONE (10:45)
[2022-01-12] MEDS: NYSTATIN TOPICAL CREAM 15GM TOP SCH ×2 (10:53→22:01)
[2022-01-12] MEDS: PANTOPRAZOLE 40 MG TAB PO SCH (10:53)
[2022-01-12] MEDS: FINASTERIDE 5 MG TAB PO SCH (10:53)
[2022-01-12] MEDS: AMIODARONE HCL 200 MG TAB PO SCH ×2 (10:54→21:54)
[2022-01-12] MEDS: CARVEDILOL 3.125 MG TAB PO SCH ×2 (10:54→22:16)
[2022-01-12] MEDS: amLODIPine BESYLATE 5 MG TAB PO SCH (10:55)
[2022-01-12] MEDS ORDERED: LINEZOLID 600MG/300ML 300 ML IV ONE (11:00)
[2022-01-12 12:05] VITALS: BP 127/46
[2022-01-12 17:01] VITALS: BP 113/62
[2022-01-12] MEDS: TAMSULOSIN HYDROCHLORIDE 0.4 MG CAP PO SCH (17:22)
[2022-01-12] MEDS: LINEZOLID 600MG/300ML 300 ML IV SCH (21:54)
[2022-01-12 22:00] VITALS: BP 138/50
[2022-01-12] MEDS: ATORVASTATIN 20 MG TAB PO SCH (22:01)
[2022-01-13 05:00] VITALS: BP 121/67
[2022-01-13 07:16] LABS: Basophils # (auto) 0.1 10 ^3/uL (0-0.2); Basophils % (auto) 0.7 % (0.0-2.0); Eosinophils # (auto) 1.5 10 ^3/uL (0-0.8); Eosinophils % (auto) 9.7 % (0.0-7.0); Hematocrit 28.2 % (41.0-53.0); Hemoglobin 9.4 g/dL (13.5-17.5); Lymphocytes # (auto) 0.8 10 ^3/uL (0.4-5.4); Lymphocytes % (auto) 5.3 % (10.0-50.0); Mean Corpuscular Hgb Conc. 33.5 g/dL (32.0-36.0); Mean Corpuscular Volume 80.6 fL (80.0-100.0); Monocytes # (auto) 1.1 10 ^3/uL (0-1.3); Monocytes % (auto) 7.4 % (0.0-12.0); Neutrophils # (auto) 11.5 10 ^3/uL (1.6-8.6); Neutrophils % (auto) 76.9 % (37.0-80.0); Red Blood Cells 3.49 10^6/uL (4.5-5.90)
[2022-01-13 07:24] LABS: Potassium 4.7 mmol/L (3.5-5.1)
[2022-01-13 07:28] LABS: Albumin 2.4 g/dL (3.4-5.0); BUN/Creatinine Ratio 12.7; Calcium 12.4 mg/dL (8.5-10.1)
[2022-01-13 07:32] LABS: INR 3.41 (0.9-1.15); Partial Thromboplastin Time 34.8 sec (23.6-33.0)
[2022-01-13 07:43] LABS: Bilirubin, Total 0.4 mg/dL (0.2-1.0); Total Protein 5.2 g/dL (6.4-8.2)
[2022-01-13 08:00] VITALS: BP 156/63
[2022-01-13 09:00] VITALS: BP 137/41
[2022-01-13] MEDS ORDERED: levoFLOXacin 500MG 100 ML IV SCH (09:00)
[2022-01-13] MEDS: LINEZOLID 600MG/300ML 300 ML IV SCH ×2 (09:04→21:58)
[2022-01-13] MEDS: levoFLOXacin 250MG 50 ML IV SCH (09:04)
[2022-01-13] MEDS: CARVEDILOL 3.125 MG TAB PO SCH ×2 (09:05→21:49)
[2022-01-13] MEDS: AMIODARONE HCL 200 MG TAB PO SCH ×2 (09:05→21:48)
[2022-01-13] MEDS: PANTOPRAZOLE 40 MG TAB PO SCH (09:06)
[2022-01-13] MEDS: FINASTERIDE 5 MG TAB PO SCH (09:06)
[2022-01-13] MEDS: amLODIPine BESYLATE 5 MG TAB PO SCH (09:06)
[2022-01-13] MEDS: NYSTATIN TOPICAL CREAM 15GM TOP SCH ×2 (09:06→21:59)
[2022-01-13] MEDS ORDERED: QUEtiapine FUMARATE 25 MG TAB PO PRN (12:45)
[2022-01-13 13:00] VITALS: BP 102/42
[2022-01-13 17:00] VITALS: BP 117/39
[2022-01-13] MEDS: TAMSULOSIN HYDROCHLORIDE 0.4 MG CAP PO SCH (17:48)
[2022-01-13] MEDS: ATORVASTATIN 20 MG TAB PO SCH (21:49)
[2022-01-13] MEDS: QUEtiapine FUMARATE 25 MG TAB PO SCH (21:49)
[2022-01-14 05:00] VITALS: BP 105/38
[2022-01-14 05:27] LABS: Basophils # (auto) 0.1 10 ^3/uL (0-0.2); Basophils % (auto) 0.8 % (0.0-2.0); Eosinophils # (auto) 1.7 10 ^3/uL (0-0.8); Eosinophils % (auto) 11.3 % (0.0-7.0); Hematocrit 25.7 % (41.0-53.0); Hemoglobin 8.8 g/dL (13.5-17.5); Lymphocytes # (auto) 0.6 10 ^3/uL (0.4-5.4); Lymphocytes % (auto) 3.8 % (10.0-50.0); Mean Corpuscular Hemoglobin 27.1 pg (28.0-32.0); Mean Corpuscular Hgb Conc. 34.1 g/dL (32.0-36.0); Mean Corpuscular Volume 79.5 fL (80.0-100.0); Monocytes # (auto) 1.2 10 ^3/uL (0-1.3); Monocytes % (auto) 7.8 % (0.0-12.0); Neutrophils # (auto) 11.8 10 ^3/uL (1.6-8.6); Neutrophils % (auto) 76.3 % (37.0-80.0); Red Blood Cells 3.23 10^6/uL (4.5-5.90); Red Cell Distribution Width 16.8 % (11.8-14.3); White Blood Cell 15.5 10^3/uL (4.4-10.8)
[2022-01-14 05:40] LABS: INR 3.37 (0.9-1.15)
[2022-01-14 05:45] LABS: Albumin 2.1 g/dL (3.4-5.0); Calcium 12.1 mg/dL (8.5-10.1); Potassium 4.4 mmol/L (3.5-5.1)
[2022-01-14 05:48] LABS: BUN/Creatinine Ratio 14.4; Bilirubin, Total 0.4 mg/dL (0.2-1.0); Total Protein 4.8 g/dL (6.4-8.2)
[2022-01-14 09:00] VITALS: BP 121/38
[2022-01-14] MEDS: AMIODARONE HCL 200 MG TAB PO SCH ×2 (09:25→22:31)
[2022-01-14] MEDS: LINEZOLID 600MG/300ML 300 ML IV SCH ×2 (09:25→23:00)
[2022-01-14] MEDS: levoFLOXacin 250MG 50 ML IV SCH (09:25)
[2022-01-14] MEDS: FINASTERIDE 5 MG TAB PO SCH (09:26)
[2022-01-14] MEDS: PANTOPRAZOLE 40 MG TAB PO SCH (09:26)
[2022-01-14] MEDS: NYSTATIN TOPICAL CREAM 15GM TOP SCH ×2 (09:26→22:31)
[2022-01-14] MEDS: CARVEDILOL 3.125 MG TAB PO SCH ×2 (09:28→22:00)
[2022-01-14] MEDS: amLODIPine BESYLATE 5 MG TAB PO SCH (09:29)
[2022-01-14] MEDS: QUEtiapine FUMARATE 25 MG TAB PO SCH (09:29)
[2022-01-14 12:53] VITALS: BP 134/38
[2022-01-14 16:33] VITALS: BP 106/37
[2022-01-14] MEDS: TAMSULOSIN HYDROCHLORIDE 0.4 MG CAP PO SCH (17:37)
[2022-01-14 22:00] VITALS: BP 94/34
[2022-01-14] MEDS: ATORVASTATIN 20 MG TAB PO SCH (22:31)
[2022-01-15] MEDS: ACETAMINOPHEN 325 MG TAB PO PRN (00:47)
[2022-01-15 05:00] VITALS: BP 108/39
[2022-01-15 06:30] LABS: Basophils # (auto) 0.1 10 ^3/uL (0-0.2); Eosinophils # (auto) 1.7 10 ^3/uL (0-0.8); Neutrophils # (auto) 9.9 10 ^3/uL (1.6-8.6); White Blood Cell 13.6 10^3/uL (4.4-10.8)
[2022-01-15 06:32] LABS: Basophils % (auto) 0.6 % (0.0-2.0); Eosinophils % (auto) 12.7 % (0.0-7.0); Hematocrit 26.5 % (41.0-53.0); Hemoglobin 9.1 g/dL (13.5-17.5); Lymphocytes # (auto) 0.8 10 ^3/uL (0.4-5.4); Lymphocytes % (auto) 5.7 % (10.0-50.0); Mean Corpuscular Hemoglobin 27.7 pg (28.0-32.0); Mean Corpuscular Hgb Conc. 34.5 g/dL (32.0-36.0); Mean Corpuscular Volume 80.3 fL (80.0-100.0); Monocytes # (auto) 1.2 10 ^3/uL (0-1.3); Monocytes % (auto) 8.5 % (0.0-12.0); Neutrophils % (auto) 72.5 % (37.0-80.0); Red Cell Distribution Width 16.9 % (11.8-14.3)
[2022-01-15 06:47] LABS: INR 3.18 (0.9-1.15); Partial Thromboplastin Time 39.5 sec (23.6-33.0)
[2022-01-15 06:50] LABS: Albumin 2.1 g/dL (3.4-5.0); Calcium 12.3 mg/dL (8.5-10.1); Potassium 4.2 mmol/L (3.5-5.1)
[2022-01-15 06:59] LABS: BUN/Creatinine Ratio 13.8; Bilirubin, Total 0.3 mg/dL (0.2-1.0); Total Protein 4.8 g/dL (6.4-8.2)
[2022-01-15 09:00] VITALS: BP 116/44
[2022-01-15] MEDS: levoFLOXacin 250MG 50 ML IV SCH (09:53)
[2022-01-15] MEDS: LINEZOLID 600MG/300ML 300 ML IV SCH ×2 (09:54→21:13)
[2022-01-15] MEDS: AMIODARONE HCL 200 MG TAB PO SCH ×2 (09:56→21:36)
[2022-01-15] MEDS: amLODIPine BESYLATE 5 MG TAB PO SCH (10:00)
[2022-01-15] MEDS: CARVEDILOL 3.125 MG TAB PO SCH ×2 (10:00→21:37)
[2022-01-15] MEDS: NYSTATIN TOPICAL CREAM 15GM TOP SCH (10:03)
[2022-01-15] MEDS: PANTOPRAZOLE 40 MG TAB PO SCH (10:03)
[2022-01-15] MEDS: FINASTERIDE 5 MG TAB PO SCH (10:03)
[2022-01-15] MEDS ORDERED: HYDROCORTISONE 2.5% TOPICAL CREAM 30GM TUBE TOP ONE (11:35)
[2022-01-15] MEDS ORDERED: FLUCONAZOLE 100 MG TAB PO ONE (11:45)
[2022-01-15 13:00] VITALS: BP 106/45
[2022-01-15 17:00] VITALS: BP 112/34
[2022-01-15] MEDS: TAMSULOSIN HYDROCHLORIDE 0.4 MG CAP PO SCH (18:16)
[2022-01-15] MEDS: SODIUM CHLORIDE 0.9% 1,000 ML IV SCH (21:13)
[2022-01-15] MEDS: ATORVASTATIN 20 MG TAB PO SCH (21:37)
[2022-01-15] MEDS: HYDROCORTISONE 2.5% TOPICAL CREAM 30GM TUBE TOP SCH (21:45)
[2022-01-15 22:16] VITALS: BP 123/52
[2022-01-15 22:53] LABS: Urine Blood Trace /uL (Negative)
[2022-01-15 22:54] LABS: Urine Bacteria MANY /hpf (None Seen); Urine Mucus FEW (None Seen); Urine WBC 110-120 /hpf (0 - 3)
[2022-01-16 04:53] VITALS: BP 129/45
[2022-01-16 06:10] LABS: INR 2.7 (0.9-1.15)
[2022-01-16] MEDS: SODIUM CHLORIDE 0.9% 1,000 ML IV SCH ×2 (06:10→23:40)
[2022-01-16 06:14] LABS: BUN/Creatinine Ratio 12.5; Potassium 4.7 mmol/L (3.5-5.1)
[2022-01-16 06:15] LABS: Calcium 12.6 mg/dL (8.5-10.1)
[2022-01-16 06:36] LABS: Basophils # (auto) 0.1 10 ^3/uL (0-0.2); Basophils % (auto) 0.6 % (0.0-2.0); Eosinophils # (auto) 1.4 10 ^3/uL (0-0.8); Eosinophils % (auto) 13.3 % (0.0-7.0); Hematocrit 27.8 % (41.0-53.0); Hemoglobin 9.3 g/dL (13.5-17.5); Lymphocytes # (auto) 0.7 10 ^3/uL (0.4-5.4); Lymphocytes % (auto) 6.5 % (10.0-50.0); Mean Corpuscular Hemoglobin 26.9 pg (28.0-32.0); Mean Corpuscular Hgb Conc. 33.4 g/dL (32.0-36.0); Mean Corpuscular Volume 80.6 fL (80.0-100.0); Monocytes # (auto) 0.8 10 ^3/uL (0-1.3); Monocytes % (auto) 7.3 % (0.0-12.0); Neutrophils # (auto) 7.8 10 ^3/uL (1.6-8.6); Neutrophils % (auto) 72.3 % (37.0-80.0); Red Blood Cells 3.46 10^6/uL (4.5-5.90); Red Cell Distribution Width 16.6 % (11.8-14.3); White Blood Cell 10.7 10^3/uL (4.4-10.8)
[2022-01-16 09:00] VITALS: BP 122/41
[2022-01-16] MEDS: levoFLOXacin 250MG 50 ML IV SCH (09:05)
[2022-01-16] MEDS: LINEZOLID 600MG/300ML 300 ML IV SCH ×2 (09:06→21:22)
[2022-01-16] MEDS: AMIODARONE HCL 200 MG TAB PO SCH ×2 (09:07→21:23)
[2022-01-16] MEDS: FLUCONAZOLE 100 MG TAB PO SCH (09:08)
[2022-01-16] MEDS: CARVEDILOL 3.125 MG TAB PO SCH ×2 (09:08→21:24)
[2022-01-16] MEDS: FINASTERIDE 5 MG TAB PO SCH (09:09)
[2022-01-16] MEDS: PANTOPRAZOLE 40 MG TAB PO SCH (09:09)
[2022-01-16] MEDS: amLODIPine BESYLATE 5 MG TAB PO SCH (09:09)
[2022-01-16] MEDS: HYDROCORTISONE 2.5% TOPICAL CREAM 30GM TUBE TOP SCH ×2 (09:10→21:23)
[2022-01-16 13:00] VITALS: BP 113/45
[2022-01-16 17:00] VITALS: BP 125/45
[2022-01-16] MEDS ORDERED: WARFARIN SODIUM 2 MG TAB PO ONE (17:00)
[2022-01-16] MEDS: TAMSULOSIN HYDROCHLORIDE 0.4 MG CAP PO SCH (18:33)
[2022-01-16] MEDS: ATORVASTATIN 20 MG TAB PO SCH (21:23)
[2022-01-16 22:00] VITALS: BP 105/40
[2022-01-16 22:51] LABS: Protein, Urine 19.8 mg/dL (0.0-11.9)
[2022-01-17] MEDS: SODIUM CHLORIDE 0.9% 1,000 ML IV SCH (03:30)
[2022-01-17] MEDS: LACTULOSE 20Gm/30ML SOLN PO PRN ×2 (03:31→21:33)
[2022-01-17 05:00] VITALS: BP 116/39
[2022-01-17 09:00] VITALS: BP 125/45
[2022-01-17] MEDS: AMIODARONE HCL 200 MG TAB PO SCH ×2 (09:58→21:20)
[2022-01-17] MEDS: CARVEDILOL 3.125 MG TAB PO SCH ×2 (09:59→21:26)
[2022-01-17] MEDS: amLODIPine BESYLATE 5 MG TAB PO SCH (09:59)
[2022-01-17] MEDS: FLUCONAZOLE 100 MG TAB PO SCH (09:59)
[2022-01-17] MEDS: HYDROCORTISONE 2.5% TOPICAL CREAM 30GM TUBE TOP SCH ×2 (10:00→21:20)
[2022-01-17] MEDS: PANTOPRAZOLE 40 MG TAB PO SCH (10:00)
[2022-01-17] MEDS: levoFLOXacin 250MG 50 ML IV SCH (10:00)
[2022-01-17] MEDS: FINASTERIDE 5 MG TAB PO SCH (10:00)
[2022-01-17] MEDS: LINEZOLID 600MG/300ML 300 ML IV SCH ×2 (10:01→21:19)
[2022-01-17 11:01] LABS: Calcium 11.8 mg/dL (8.5-10.1)
[2022-01-17 11:12] LABS: BUN/Creatinine Ratio 13.4
[2022-01-17 12:22] LABS: INR 2.8 (0.9-1.15)
[2022-01-17 13:00] VITALS: BP 148/63
[2022-01-17 16:48] VITALS: BP 136/53
[2022-01-17] MEDS ORDERED: WARFARIN SODIUM 2 MG TAB PO ONE (17:00)
[2022-01-17] MEDS: TAMSULOSIN HYDROCHLORIDE 0.4 MG CAP PO SCH (17:35)
[2022-01-17] MEDS: ATORVASTATIN 20 MG TAB PO SCH (21:20)
[2022-01-17 21:46] VITALS: BP 134/68
[2022-01-18 05:00] VITALS: BP 124/68
[2022-01-18] MEDS: SODIUM CHLORIDE 0.9% 1,000 ML IV SCH ×2 (05:32→15:40)
[2022-01-18 07:03] LABS: Potassium 4.6 mmol/L (3.5-5.1)
[2022-01-18 07:06] LABS: Immunoglobulin G, Serum 670 mg/dL (603-1613)
[2022-01-18 07:06] LABS: BUN/Creatinine Ratio 11.7
[2022-01-18 07:20] LABS: INR 3.47 (0.9-1.15)
[2022-01-18 09:00] VITALS: BP 104/65
[2022-01-18] MEDS: levoFLOXacin 250MG 50 ML IV SCH (09:26)
[2022-01-18] MEDS: PANTOPRAZOLE 40 MG TAB PO SCH (09:27)
[2022-01-18] MEDS: FINASTERIDE 5 MG TAB PO SCH (09:27)
[2022-01-18] MEDS: FLUCONAZOLE 100 MG TAB PO SCH (09:27)
[2022-01-18] MEDS: AMIODARONE HCL 200 MG TAB PO SCH ×2 (09:32→22:49)
[2022-01-18] MEDS: LINEZOLID 600MG/300ML 300 ML IV SCH ×2 (09:37→22:49)
[2022-01-18] MEDS ORDERED: PAMIDRONATE DISODIUM 90 MG in SOD CHL 0.45% 1,000 ML IV ONE (09:45)
[2022-01-18] MEDS: CARVEDILOL 3.125 MG TAB PO SCH ×2 (09:45→22:50)
[2022-01-18] MEDS: amLODIPine BESYLATE 5 MG TAB PO SCH (09:46)
[2022-01-18] MEDS: HYDROCORTISONE 2.5% TOPICAL CREAM 30GM TUBE TOP SCH ×2 (09:46→22:50)
[2022-01-18 13:00] VITALS: BP 102/79
[2022-01-18 17:01] VITALS: BP 124/94
[2022-01-18] MEDS: TAMSULOSIN HYDROCHLORIDE 0.4 MG CAP PO SCH (18:50)
[2022-01-18 22:00] VITALS: BP 128/46
[2022-01-18] MEDS: ATORVASTATIN 20 MG TAB PO SCH (22:50)
[2022-01-19 04:42] VITALS: BP 123/45
[2022-01-19] MEDS: SODIUM CHLORIDE 0.9% 1,000 ML IV SCH (05:00)
[2022-01-19 06:35] LABS: INR 3.64 (0.9-1.15)
[2022-01-19 09:00] VITALS: BP 122/49
[2022-01-19] MEDS: levoFLOXacin 250MG 50 ML IV SCH (10:02)
[2022-01-19] MEDS: LINEZOLID 600MG/300ML 300 ML IV SCH (10:02)
[2022-01-19] MEDS: FINASTERIDE 5 MG TAB PO SCH (10:24)
[2022-01-19] MEDS: AMIODARONE HCL 200 MG TAB PO SCH (10:24)
[2022-01-19] MEDS: amLODIPine BESYLATE 5 MG TAB PO SCH (10:25)
[2022-01-19] MEDS: PANTOPRAZOLE 40 MG TAB PO SCH (10:25)
[2022-01-19] MEDS: CARVEDILOL 3.125 MG TAB PO SCH (10:25)
[2022-01-19] MEDS: FLUCONAZOLE 100 MG TAB PO SCH (10:25)
[2022-01-19] MEDS: HYDROCORTISONE 2.5% TOPICAL CREAM 30GM TUBE TOP SCH (10:26)
[2022-01-19 13:00] VITALS: BP 104/64
[2022-01-19 13:48] VITALS: BP 104/64
== END 2022-01-19 17:00 | disposition hospice, home (50) | DRG 871 ==
LOC: ER 00:48 → TELE 16:26 → TELE-CENTR 23:40
PROVIDERS: ADMIT Hospitalist; ATTEND Internal Medicine
PROC: 06H03DZ Insertion of Intraluminal Device into Inferior Vena Cava, Percutaneous Approach (ICD-10-PCS; principal; 2022-01-05 12:36)
PROC: 0HB6XZX Excision of Back Skin, External Approach, Diagnostic (ICD-10-PCS; 2022-01-06)
DX: A41.81 Sepsis due to Enterococcus (principal); E43 Unspecified severe protein-calorie malnutrition; I50.43 Acute on chronic combined systolic (congestive) and diastolic (congestive) heart failure; N17.0 Acute kidney failure with tubular necrosis; J18.9 Pneumonia, unspecified organism; I13.0 Hypertensive heart and chronic kidney disease with heart failure and stage 1 through stage 4 chronic kidney disease, or unspecified chronic kidney disease; N12 Tubulo-interstitial nephritis, not specified as acute or chronic; N13.8 Other obstructive and reflux uropathy; I82.412 Acute embolism and thrombosis of left femoral vein; D68.59 Other primary thrombophilia; J96.10 Chronic respiratory failure, unspecified whether with hypoxia or hypercapnia; D63.8 Anemia in other chronic diseases classified elsewhere; E11.22 Type 2 diabetes mellitus with diabetic chronic kidney disease; E78.00 Pure hypercholesterolemia, unspecified; E78.5 Hyperlipidemia, unspecified; E83.52 Hypercalcemia; I48.0 Paroxysmal atrial fibrillation; N40.1 Benign prostatic hyperplasia with lower urinary tract symptoms; E88.09 Other disorders of plasma-protein metabolism, not elsewhere classified; E87.5 Hyperkalemia; E11.40 Type 2 diabetes mellitus with diabetic neuropathy, unspecified; Z20.822 Contact with and (suspected) exposure to COVID-19; N18.32 Chronic kidney disease, stage 3b; E11.21 Type 2 diabetes mellitus with diabetic nephropathy; Z51.5 Encounter for palliative care; Z79.01 Long term (current) use of anticoagulants; Z79.84 Long term (current) use of oral hypoglycemic drugs; Z79.899 Other long term (current) drug therapy; Z86.718 Personal history of other venous thrombosis and embolism; Z95.2 Presence of prosthetic heart valve; Z95.828 Presence of other vascular implants and grafts; Z68.24 Body mass index [BMI] 24.0-24.9, adult
CPT/HCPCS: 36415; 37191; 70450; 71045; 74176; 76775; 80048; 80053; 80061; 80307; 81001; 82306; 82550; 82565; 82570; 82728; 82784; 82962; 83036; 83615; 83690; 83735; 83880; 83883; 83970; 84100; 84154; 84155; 84156; 84165; 84166; 84443; 84484; 84550; 85007; 85025; 85027; 85379; 85610; 85652; 85730; 86141; 86334; 86335; 86850; 86900; 86901; 87040; 87081; 87086; 87088; 87186; 88302; 92610; 93005; 93306; 93971; 94640; 96361; 96374; 97110; 97116; 97163; 97530; 99152; G0378; J0690; J0696; J1100; J1335; J1815; J1956; J2001; J2250; J2704; J3490